=== PATIENT | female | born 1950 | race Caucasian/White ===

== ENCOUNTER 2023-09-02 11:51 | Day surgery (SDC) | payer MEDICARE, OTHER ==
[~2023-09-02] VITALS: Ht 165.1 cm; Wt 86.3 kg
[~2023-09-02 11:51] MED LIST: CHILDREN'S FLO9.9 ML NS; DEXILANT60 MG PO; ESTRADIOL2 MG PO; FLUOXETINE HCL40 MG PO; GABAPENTIN300 MG PO; IBLOOD GLUCOSE TEST STRIP 1 EA TEST VI PRN; LACTATED RINGER'S 1,000 ML IV SCH; LIDOCAINE HCL 1% 5 ML SDV INJ ONE; LIDOCAINE HCL 4% 50 ML BTL TOP SCH; LOVASTATIN20 MG PO; MELOXICAM15 MG PO; METFORMIN HCL500 M1 PO; NORCO 10-325 T1 EACH PO; OSTEO BI-FLEX1 EAC2 PO; SERTRALINE HCL100 MG PO; VITAMIN C WITH500 M2 PO
[2023-09-02] MEDS ORDERED: PRILOSEC OTC20 MG PO (12:21)
[2023-09-02] MEDS ORDERED: COZAAR50 MG PO (12:23)
[2023-09-02] MEDS ORDERED: TRAZODONE HCL100 MG PO (12:26)
[2023-09-02 12:37] VITALS: BP 143/78
[2023-09-02] MEDS ORDERED: fentaNYL citrate 100 MCG/2 ML VIAL ONE (12:48)
[2023-09-02] MEDS ORDERED: MIDAZOLAM HCL 5 MG/5 ML VIAL ONE (12:49)
--- NOTE | 2023-09-02 12:52 | NUR ---
DAUGHTER WERNER WITH PT AND DOES HELP WITH ANSWERS. STATES PT HAS DEMENTIA. PT DOES NOT AGREE.
--- NOTE | 2023-09-02 13:46 | NUR ---
09/02/23 1346 Linda Sosa PATIENT REPOSITIONS HERSELF ONTO HER BACK. HOB IS ELEVATED. ICED WATER GIVEN. SATURATION IS 97% ON 3L VIA NC. OXYGEN IS REDUCED TO 1L VIA NC.
[2023-09-02 14:01] VITALS: BP 152/80
--- NOTE | 2023-09-02 15:28 | OR ---
[facility] [address] [place], [place] [address] Signed DATE OF OPERATION: 09/02/2023 SURGEON: Maude Figueroa MD PREOPERATIVE DIAGNOSIS: Dysphagia. POSTOPERATIVE DIAGNOSIS: Normal-appearing esophagus; mild duodenitis, poor flap valve. PROCEDURE: Esophagogastroduodenoscopy with biopsy. ANESTHESIA: Intravenous sedation; fentanyl 100 mcg and Versed 2 mg. INDICATIONS FOR THE PROCEDURE: This 73-year-old white woman is a patient of LUIZ Bautista. She is also the mother of my medical laboratory technical officer, June. The patient has had complaints of dysphagia from time to time. She underwent upper endoscopy by me in September of 2015, which showed mild duodenitis, but no sign of gastritis, esophagitis. A negative biliary workup was undertaken at that time as well. Currently, she has some upper abdominal pain often exacerbated with eating. She notes some dysphagia particularly to meat. She does take diclofenac. She is also on PPI medication, Prilosec. She is admitted at this time to undergo upper endoscopy to better characterize the source of her dysphagia, understanding the risk of bleeding, infection, perforation. Incidentally noted she has had a Cologuard test in June of 2022, for which no followup colonoscopy was performed that is anticipated as well in the future. DESCRIPTION OF PROCEDURE: The patient was brought to the endoscopy suite and placed in lateral decubitus position given intravenous sedation to the point of slurred speech and nystagmus. A bite block was placed. Topical lidocaine hypopharyngeal anesthesia had been administered. A bite block was placed and an Olympus video upper endoscope was passed in the hypopharynx. The vocal cords appeared normal. Scope was advanced to the esophagus without problem. Throughout its length, it was normal including the distal portion without sign of stricture, neoplasm, or even inflammation in any way. The scope was advanced to the stomach, which was insufflated with air. Rugal folds were normal. There was some bile in the stomach, but not much. The pylorus was normal, scope was passed into the Electronically Signed By: MAUDE FIGUEROA MD 09/02/23 1528 PATIENT NAME: IVETTE LINDSAY OPERATIVE REPORT DATE OF : 54 REPORT #: [id number] PHYSICIAN: MAUDE FIGUEROA MD PCP: EVANGELINA LUTHER PAC REPORT IS CONFIDENTIAL AND NOT TO BE RELEASED WITHOUT AUTHORIZATION [facility] [address] [place], [place] [address] Signed duodenum. The duodenal bulb was mildly inflamed, but there was no sign of ulceration. Biopsies were obtained. The scope was withdrawn after biopsies of the duodenum were complete, including the 2nd, 3rd, and bulbar portions. Biopsy of the antrum was undertaken for both BRANDEN and pathologic testing. Retroflexed view was undertaken showing a poor flap valve, but no large hiatal hernia by any means. Careful withdrawal of scope through the GE junction showed completely normal mucosa of the esophagus. No sign of Dempsey's epithelium, stricture, neoplasm, or other abnormality. The midesophagus did not have felinization, but biopsies were obtained to assess for eosinophilic esophagitis. The scope was withdrawn and removed, and the patient was taken to the recovery room in good condition. CONCLUDING DIAGNOSIS: Clinical complaints of dysphagia without sign of stricture or neoplasm. She may have occult eosinophilic esophagitis and we await the pathology report of the midesophagus for that determination. She does have mild duodenitis and I would recommend continued use of omeprazole as she is doing. If the pathology report does not affirm eosinophilic esophagitis, a video esophagram may be appropriate to assess for a primary dysmotility problem of the esophagus. Additionally, she has been noted to have a positive Cologuard test in June of 2022 more than a year ago and yet she has not yet had a colonoscopy. A colonoscopy would be recommended. We will have her call the office to schedule for colonoscopy at her earliest convenience and await her pathology report in the meantime. MD MEI Yung/MAO /[id number] cc: Evangelina Luther PA-C Copies: EVANGELINA LUTHER PAC ~ Electronically Signed By: MAUDE FIGUEROA MD 09/02/23 1528 PATIENT NAME: IVETTE LINDSAY OPERATIVE REPORT DATE OF : 54 REPORT #: [id number] PHYSICIAN: MAUDE FIGUEROA MD PCP: EVANGELINA LUTHER PAC REPORT IS CONFIDENTIAL AND NOT TO BE RELEASED WITHOUT AUTHORIZATION
--- NOTE | 2023-09-08 14:25 | PATH ---
[facility] [address] [facility] [place], [place] [address] Signed SPECIMEN(S): A DUODENAL BIOPSY SPECIMEN(S): B ANTRUM BIOPSY SPECIMEN(S): C LOWER ESOPHAGUS BIOPSY SPECIMEN(S): D MID ESOPHAGUS BIOPSY SPECIMEN SOURCE: A. DUODENAL BIOPSY B. ANTRUM BIOPSY C. LOWER ESOPHAGUS BIOPSY D. MID ESOPHAGUS BIOPSY CLINICAL HISTORY: Dysphagia. Post-op: Duodenitis. FINAL PATHOLOGIC DIAGNOSIS: A. Duodenum, biopsy: - No significant histopathology. B. Stomach, antrum, biopsy: - No significant histopathologic alterations. C. Esophagus, lower, biopsy: - Portions of unremarkable squamous mucosa. D. Esophagus, mid, biopsy: - Portions of unremarkable squamous mucosa. COMMENT: A. The sections from the duodenal biopsy show portions of duodenal mucosa with long fingerlike villi. There is no villous atrophy, crypt hyperplasia or intraepithelial lymphocytosis making a diagnosis of celiac disease unlikely. There is no evidence of peptic duodenitis, microorganisms, abnormal infiltrates or neoplasia. B. The sections through the gastric biopsies show fragments of histologically unremarkable antral mucosa. There is no evidence of acute or chronic inflammation. There is no evidence of H. pylori, intestinal metaplasia, abnormal infiltrates or neoplasia. C, D. The biopsy shows normal appearing squamous epithelium. There is no evidence of acute or chronic inflammation. No glandular mucosa is present. K MICROSCOPIC EXAMINATION: Histologic sections of all submitted blocks are examined by light microscopy. These findings, together with the gross examination, support the pathologic PATIENT NAME: NEFTALIIVETTE PATHOLOGY DATE OF : 54 REPORT #: [id number] PHYSICIAN: HARSHAD PATEL PCP: ROOSEVELT SINGH PAC REPORT IS CONFIDENTIAL AND NOT TO BE RELEASED WITHOUT AUTHORIZATION [facility] [address] [place], [place] [address] Signed diagnosis. GROSS DESCRIPTION: A. The specimen, labeled and designated "McNeilly, duodenal biopsy," is received in formalin and consists of five schafer soft tissue fragments, ranging from 0.1-0.3 cm. Entirely submitted in (A1). B. The specimen, labeled and designated "McNeilly, antrum biopsy," is received in formalin and consists of two schafer soft tissue fragments, ranging from 0.3-0.6 cm. Entirely submitted in (B1). C. The specimen, labeled and designated "McNeilly, lower esophagus biopsy," is received in formalin and consists of four schafer soft tissue fragments, ranging from 0.2-0.7 cm. Entirely submitted in (C1). D. The specimen, labeled and designated "McNeilly, mid esophagus biopsy," is received in formalin and consists of four schafer soft tissue fragments, ranging from 0.3-0.5 cm. Entirely submitted in (D1). VB (under the direct supervision of a pathologist) The Gross Description was prepared using a voice recognition system. The report was reviewed for accuracy; however, sound-alike word errors, addition and/or deletions may occur. If there is any question about this report, please contact Client Services. ADDITIONAL NOTES: Immunohistochemical and/or in situ hybridization studies if performed in this case included appropriate positive controls that reacted as expected. This test was developed and its performance characteristics determined by [facility]. It has not been cleared or approved by the U.S. Food and Drug Administration. The FDA has determined that such clearance or approval is not necessary. This test is used for clinical purposes. It should not be regarded as investigational or for research. [facility] is certified under the Clinical Laboratory Improvement Amendments of 1988 (CLIA) as qualified to perform high complexity clinical laboratory testing. PERFORMING LABORATORY: Technical component was performed by [facility], [address] [place] [id number] (CLIA# [id number]). Professional interpretation was performed by [facility], [address] [place] [address] (CLIA#:[id number]). PATIENT NAME: IVETTE LINDSAY PATHOLOGY DATE OF : 54 REPORT #: [id number] PHYSICIAN: HARSHAD PATEL PCP: ROOSEVELT SINGH REPORT IS CONFIDENTIAL AND NOT TO BE RELEASED WITHOUT AUTHORIZATION [address] [address] Signed Diagnostician: Trace Vasquez MD Pathologist Electronically Signed 09/08/2023 Copies: ~ PATIENT NAME: IVETTE LINDSAY PATHOLOGY DATE OF : 54 REPORT #: [id number] PHYSICIAN: HARSHAD PATHOLOGY PCP: ROOSEVELT SINGH PAC REPORT IS CONFIDENTIAL AND NOT TO BE RELEASED WITHOUT AUTHORIZATION
== END 2023-09-02 14:10 | disposition home or self-care (01) ==
LOC: OPS 11:51 → DS 11:51 → OPS 13:00
PROVIDERS: ATTEND Surgery
PROC: 0DB68ZX Excision of Stomach, Via Natural or Artificial Opening Endoscopic, Diagnostic (ICD-10-PCS; 2023-09-02)
PROC: 0DB28ZX Excision of Middle Esophagus, Via Natural or Artificial Opening Endoscopic, Diagnostic (ICD-10-PCS; principal; 2023-09-02 13:00)
DX: K29.80 Duodenitis without bleeding (principal); E55.9 Vitamin D deficiency, unspecified; E78.00 Pure hypercholesterolemia, unspecified; I10 Essential (primary) hypertension; K21.9 Gastro-esophageal reflux disease without esophagitis; Z88.0 Allergy status to penicillin; Z90.711 Acquired absence of uterus with remaining cervical stump
CPT/HCPCS: 88305; 99153; G0500; J2250; J3010; J7121

== ENCOUNTER 2023-12-23 12:09 | Day surgery (SDC) | payer MEDICARE, OTHER ==
[~2023-12-23] VITALS: Ht 165.1 cm; Wt 86.4 kg
[~2023-12-23 12:09] MED LIST changes: +COZAAR50 MG PO; +CYMBALTA60 MG PO; +DETROL LA2 MG PO; -LIDOCAINE HCL 4% 50 ML BTL TOP SCH; +MIDAZOLAM HCL 5 MG/5 ML VIAL IV PRN; +PRILOSEC OTC20 MG PO; +TRAZODONE HCL100 MG PO; +VITAMIN C500 M5 PO; +fentaNYL citrate 100 MCG/2 ML VIAL IV PRN
[2023-12-23 12:22] VITALS: BP 126/59
[2023-12-23] MEDS ORDERED: DICLOFENAC POTA50 MG PO (12:39)
[2023-12-23] MEDS ORDERED: CYCLOBENZAPRINE10 MG PO (12:39)
[2023-12-23] MEDS ORDERED: fentaNYL citrate 100 MCG/2 ML VIAL ONE (14:17)
[2023-12-23] MEDS ORDERED: MIDAZOLAM HCL 5 MG/5 ML VIAL ONE (14:17)
--- NOTE | 2023-12-23 15:49 | NUR ---
12/23/23 1549 Kylah Mcdermott 1513- PT ARRIVES TO THE PACU WITH EYES OPEN. NATURAL AIRWAY. PT ABLE TO ANSWER QUESTIONS ACCORDINGLY. PT DENIES PAIN AND NAUSEA. PT ENCOURAGED TO PASS GAS. PT PASSING GAS OFF AND ON. ALL MONITORS IN PLACE. ABDOMEN IS SOFT AND NON DISTENDED. 1525- MD AT BEDSIDE TALKING WITH PT. NO QUESTIONS OR CONCERNS. 1538- PT CONTINUES TO PASS GAS. 02 TURNED OFF AND TOLERATED WELL. 1548- PT EDUCATED ON POLYPS AND DIVERTICULI AFTER ASKING QUESTIONS. EDUCATION PACKETS INCLUDED IN DC INFO.
[2023-12-23 15:53] VITALS: BP 156/93
--- NOTE | 2023-12-25 14:26 | OR ---
[facility] [address] [place], [place] [address] Signed DATE OF OPERATION: 12/23/2023 SURGEON: Maude Figueroa MD PREOPERATIVE DIAGNOSIS: Positive Cologuard test June 2022. POSTOPERATIVE DIAGNOSIS: Polyps x2 sigmoid and rectosigmoid. PROCEDURE: Total colonoscopy to cecum with cold morcellation polypectomy x2. ANESTHESIA: Intravenous sedation; fentanyl 150 mcg and Versed 5 mg. INDICATION: This 73-year-old white woman is a patient of LUIZ Bautista. She underwent Cologuard testing in June of 2022, which was positive. She has no symptoms of bleeding, diarrhea, or constipation. She has no family history of colon cancer. She has had some upper gastrointestinal symptoms particularly after eating. Previous biliary evaluation is negative overall. She is admitted at this time to undergo colonoscopy on the basis of the Cologuard test. She understands the risk of bleeding, infection, and perforation and wished to proceed. FINDINGS: The prep was adequate. Complete colonoscopy was undertaken of the cecum. She tolerated it well. She had diverticulosis throughout the colon, most dominantly in the sigmoid and two small polyps, one in the left colon, the other in the sigmoid, both excised with cold morcellation technique. PROCEDURE IN DETAIL: The patient was brought to the endoscopy suite and placed in the lateral decubitus position, given intravenous sedation to the point of slurred speech and nystagmus with full cardiopulmonary monitoring. Digital rectal examination was normal. An Olympus video colonoscope was passed in the rectum and manipulated throughout the colon noting numerous diverticula of the sigmoid and left colon. Scope was passed beyond this ultimately to the cecum. Irrigation was undertaken as needed. There was no solid stool, but a fair amount of enteric fluid otherwise. Visualization of the cecum Electronically Signed By: MAUDE FIGUEROA MD 12/25/23 1426 PATIENT NAME: IVETTE LINDSAY OPERATIVE REPORT DATE OF : 54 REPORT #: [id number] PHYSICIAN: MAUDE FIGUEROA MD PCP: EVANGELINA LUTHER REPORT IS CONFIDENTIAL AND NOT TO BE RELEASED WITHOUT AUTHORIZATION [facility] [address] [place] [id number] Signed . Further withdrawal of the scope was undertaken showing only diverticula. Ultimately left colonic small polyp was noted, this was excised with cold morcellation technique. Further withdrawal showed another similar such polyp in the rectosigmoid. It was excised as well. Retroflexed view was normal. Scope was removed and the patient was taken to the recovery room in good condition. CONCLUDING DIAGNOSIS: Two very small polyps accounting for positive Cologuard test. PLAN: Recommend repeat colonoscopy in 10 years, sooner if symptoms should develop. Would maintain high-fiber diet. She will return to the ongoing care of LUIZ Bautista. MD MEI Yung/MAO /[id number] cc: Evangelina Luther PA-C Copies: EVANGELINA LUTHER PAC ~ Electronically Signed By: MAUDE FIGUEROA MD 12/25/23 1426 PATIENT NAME: TAMMYMAURAIVETTE Mojica OPERATIVE REPORT DATE OF : 54 REPORT #: [id number] PHYSICIAN: MAUDE FIGUEROA MD PCP: EVANGELINA LUTHER PAC REPORT IS CONFIDENTIAL AND NOT TO BE RELEASED WITHOUT AUTHORIZATION
--- NOTE | 2023-12-28 20:46 | PATH ---
[facility] [facility] [address] [facility] [place], [place] [address] Signed SPECIMEN(S): A DESCENDING POLYP SPECIMEN(S): B SIGMOID POLYP SPECIMEN SOURCE: A. DESCENDING POLYP B. SIGMOID POLYP CLINICAL HISTORY: Positive Cologuard FINAL PATHOLOGIC DIAGNOSIS: A. Descending colon polyp, biopsy: - Portion of hyperplastic polyp (1 of 2 pieces). - Portion of unremarkable colonic mucosa (1 of 2 pieces). - Negative for dysplasia and malignancy. B. Sigmoid colon polyp, biopsy: - Portions of hyperplastic polyp (2 of 2 pieces). - Negative for dysplasia and malignancy. SDL MICROSCOPIC EXAMINATION: Histologic sections of all submitted blocks are examined by light microscopy. These findings, together with the gross examination, support the pathologic diagnosis. GROSS DESCRIPTION: A. The specimen, labeled and designated "McNeilly, descending polyp," is received in formalin and consists of two schafer soft tissue fragments, ranging from 0.2-0.3 cm. Entirely submitted in (A1). B. The specimen, labeled and designated "McNeilly, sigmoid polyp," is received in formalin and consists of two schafer soft tissue fragments, ranging from 0.2-0.4 cm. Entirely submitted in (B1). VB (under the direct supervision of a pathologist) The Gross Description was prepared using a voice recognition system. The report was reviewed for accuracy; however, sound-alike word errors, addition and/or deletions may occur. If there are any questions about this report, please contact Client Services. ADDITIONAL NOTES: Immunohistochemical and/or in situ hybridization studies if performed in this case included appropriate positive controls that reacted as expected. This PATIENT NAME: IVETTE LINDSAY PATHOLOGY DATE OF : 54 REPORT #: [id number] PHYSICIAN: HARSHAD PATEL PCP: ROOSEVELT SINGH PAC REPORT IS CONFIDENTIAL AND NOT TO BE RELEASED WITHOUT AUTHORIZATION [facility] [address] [place], [place] [address] Signed test was developed and its performance characteristics determined by [facility]. It has not been cleared or approved by the U.S. Food and Drug Administration. The FDA has determined that such clearance or approval is not necessary. This test is used for clinical purposes. It should not be regarded as investigational or for research. [facility] is certified under the Clinical Laboratory Improvement Amendments of 1988 (CLIA) as qualified to perform high complexity clinical laboratory testing. PERFORMING LABORATORY: Technical component was performed by [facility], [address] [place] [address] (CLIA# [id number]). Professional interpretation was performed by [facility], [address] [place] [id number] (CLIA#: [id number]). Diagnostician: Anupama Contreras MD Pathologist Electronically Signed 12/28/2023 Copies: ~ PATIENT NAME: IVETTE LINDSAY PATHOLOGY DATE OF : 54 REPORT #: [id number] PHYSICIAN: HARSHAD PATEL PCP: ROOSEVELT SINGH PAC REPORT IS CONFIDENTIAL AND NOT TO BE RELEASED WITHOUT AUTHORIZATION
== END 2023-12-23 16:00 | disposition home or self-care (01) ==
LOC: DS 12:09
PROVIDERS: ATTEND Surgery
PROC: 0DBN8ZZ Excision of Sigmoid Colon, Via Natural or Artificial Opening Endoscopic (ICD-10-PCS; 2023-12-23)
PROC: 0DBG8ZZ Excision of Left Large Intestine, Via Natural or Artificial Opening Endoscopic (ICD-10-PCS; principal; 2023-12-23 12:45)
DX: Z12.11 Encounter for screening for malignant neoplasm of colon (principal); K63.5 Polyp of colon; R13.19 Other dysphagia; Z90.711 Acquired absence of uterus with remaining cervical stump; I10 Essential (primary) hypertension; Z86.59 Personal history of other mental and behavioral disorders
CPT/HCPCS: 88305; 99153; G0500; J2250; J3010; J7121

== ENCOUNTER 2024-04-17 09:26 | Emergency (ER) | payer MEDICARE, OTHER ==
[~2024-04-17] VITALS: Ht 165.1 cm; Wt 86.6 kg
[~2024-04-17 09:26] MED LIST changes: +CYCLOBENZAPRINE10 MG PO; +DICLOFENAC POTA50 MG PO; -IBLOOD GLUCOSE TEST STRIP 1 EA TEST VI PRN; -LACTATED RINGER'S 1,000 ML IV SCH; -LIDOCAINE HCL 1% 5 ML SDV INJ ONE; -MIDAZOLAM HCL 5 MG/5 ML VIAL IV PRN; -fentaNYL citrate 100 MCG/2 ML VIAL IV PRN
[2024-04-17] MEDS ORDERED: TETANUS-DIPHTHERIA TOXOIDS/PF 0.5 ML VIAL IM ONE (09:45)
[2024-04-17] MEDS ORDERED: DIPHTH,PERTUSS(ACELL),TET VAC 0.5 ML SYRINGE IM ONE (09:45)
[2024-04-17] MEDS ORDERED: ONDANSETRON ODT8 MG PO (10:10)
[2024-04-17] MEDS ORDERED: BACITRACIN 0.9 GM 1 PKT PKT TOP ONE (10:15)
[2024-04-17 10:25] VITALS: BP 144/89
== END 2024-04-17 10:25 | disposition home or self-care (01) ==
LOC: ED 09:26
DX: S01.01XA Laceration without foreign body of scalp, initial encounter (principal); I10 Essential (primary) hypertension; F17.200 Nicotine dependence, unspecified, uncomplicated; Z88.0 Allergy status to penicillin; Z88.1 Allergy status to other antibiotic agents; Z88.8 Allergy status to other drugs, medicaments and biological substances; Z79.899 Other long term (current) drug therapy; Z79.84 Long term (current) use of oral hypoglycemic drugs; W18.30XA Fall on same level, unspecified, initial encounter
CPT/HCPCS: 70450; 90471; 90715; 99283-25